=== PATIENT | male | born 1990 | race Two or more races ===

== ENCOUNTER 2023-07-16 10:08 | Emergency (ER) | payer MEDICAID, OTHER ==
[~2023-07-16] VITALS: Ht 182.9 cm; Wt 142.6 kg
[2023-07-16 11:41] VITALS: BP 119/67; PULSE 77; RESP 16; TEMP 97.7; O2SAT 99
[2023-07-16] MEDS: KETOROLAC TROMETH 60MG/2ML VIAL IM ONE (11:55)
[2023-07-16] MEDS ORDERED: IBUP-1456 PO (12:36)
[2023-07-16] MEDS ORDERED: METH-1182 PO (12:36)
== END 2023-07-16 12:44 | disposition home or self-care (01) ==
LOC: ER 10:08
DX: S39.012A Strain of muscle, fascia and tendon of lower back, initial encounter (principal); X50.1XXA Overexertion from prolonged static or awkward postures, initial encounter; Y93.89 Activity, other specified; Y92.89 Other specified places as the place of occurrence of the external cause; Y99.8 Other external cause status
CPT/HCPCS: 72100; 96372; 99283; J1885

== ENCOUNTER 2025-04-07 22:00 | Inpatient (IN) | payer MEDICAID ==
[~2025-04-07] VITALS: Ht 180.3 cm; Wt 136.9 kg
[~2025-04-07 22:00] MED LIST: IBUP-1456 PO; METH-1182 PO
[2025-04-07 23:29] LABS: Hematocrit 41.5 % (41.0-53.0); Hemoglobin 14.1 g/dL (13.5-17.5); Mean Corpuscular Hemoglobin 29.2 pg (28.0-32.0); Mean Corpuscular Volume 86.1 fL (80.0-100.0); Nucleated Red Blood Cells % 0.1 %
[2025-04-07 23:39] LABS: Alanine Aminotransferase 28 U/L (7-40); Albumin 4.3 g/dL (3.2-4.8); Alkaline Phosphatase 103 U/L (46-116); Anion Gap 7 (5-15); BUN/Creatinine Ratio 11.3 (10.0-20.0); Blood Urea Nitrogen 14 mg/dL (9-23); Calcium 9.6 mg/dL (8.7-10.4); Carbon Dioxide 26 mmol/L (20-31); Chloride 107 mmol/L (98-107); Glucose 99 mg/dL (74-106); Potassium 5.0 mmol/L (3.5-5.1); Sodium 140 mmol/L (136-145); Total Protein 7.5 g/dL (5.7-8.2)
[2025-04-07 23:42] LABS: Bilirubin, Total 0.3 mg/dL (0.2-1.0)
--- NOTE | 2025-04-07 23:44 | ED.PDOC ---
Musculoskeletal HPI Comments HPI: 35-year-old male who came to ER for lower extremity pain. He has been experiencing posterior left upper leg pain since April 02. Noted leg pain would radiate to his left upper abdomen. Denies any chest pains or shortness of breath. Ultrasound of the left leg was done last Apr 04. Received a phone call from his primary care provider earlier today telling him that he has a blood clot on his left leg and proceed to the emergency room Past Medical History: Denies Surgical History: Left lower leg surgery Family History: Denies Personal and Social History: Denies HPI: Poor Historian. REVIEW OF SYSTEMS: CONSTITUTIONAL: Denies acute: fever, diaphoresis, chills, generalized weakness. HEAD: Denies acute: headache, photophobia Eyes: Denies acute: Double vision, vision loss, eye pain, eye discharge. EARS: Denies acute: tinnitus, hearing loss, ear discharge, ear pain, THROAT: Denies acute: sore throat, swelling, difficulty swallowing , pain with swallowing, change in voice. NECK: Denies acute: neck pain, neck swelling, stiff neck. HEART: Denies acute : chest pain, palpitations, LUNGS: Denies acute: SOB, wheezing, cough, hemoptysis ABDOMEN: Denies acute: abdominal pain, Nausea, Vomiting, diarrhea, melena , hematemesis, hematochezia SKIN: Denies acute: rash, redness, lesions, itchiness. EXTREMITIES: Denies acute: calf pain, numbness, tingling, weakness, Denies acute: Low back pain. Neuro: Denies acute: focal neurological deficit, motor or sensory focal neurological deficit, tremors, seizure like activity, confusion, dizziness, change in mental status, loss of bowel or bladder function, cauda equina like symptoms. : Denies acute: dysuria, hematuria, flank pain, increase in urinary frequency. PSYCH: Denies acute: hallucination, suicidal ideation, homicidal ideation. PHYSICAL EXAM: General: ----mild----acute distress, awake and alert. Head: normocephalic, atraumatic. No raccoon's eyes, no ayoub sign. Neck: supple, trachea is midline, no swelling. Throat: Normal phonation. Eyes:, no erythema, no purulent discharge, no proptosis, no icterus. Heart: regular rate, regular rhythm, no significant murmur appreciated. Lungs: no apparent respiratory distress, Able to speak in full sentences. No wheezing, no rhonchi, no crackles. No stridors Clear to auscultation bilaterally. Abdomen: non tender to palpation, non distended, soft, no guarding, no rebound, + bowel sounds. Neuro: Awake, Alert, oriented to name, self, situation, follows commands GCS=15. Speech is normal. Skin: no petechia, no purpura, no cyanosis, non-pale, not jaundice. Lower extremities: --no - Pitting edema no deformity, no focal swelling, Evaluation of the area of complaint: Left lower extremity pushing points to proximal posterior thigh where he feels a bulge and tenderness to palpation. In that extremity patient has multiple protrusions and lumps that are chronic in nature but he says overall he has been getting worse in the last few days. He had these lumps and skin fold loculations since of that extremity. Makes eye contact. moves all four extremities. Face: no apparent facial droop. Ambulating in the ED independently. ED COURSE: DISCLAIMER: This medical document was created using an electronic medical record system with voice recognition software and computerized dictation system. Although this document has been carefully reviewed, there might still be some phonetic and typographical errors. Occasional wrong-word or "sound-alike" substitutions may have occurred due to the inherent limitations of voice recognition software. These areas are purely typographical due to imperfections of the software pr ograms and do not reflect any compromise in the patient's medical care. Please read the chart carefully and recognize, using context, where these substitutions have occurred. Chief Complaint: Lower Extremity Time Seen by MD: 23:43 Reviewed Notes: Nurses Notes, Allergies Allergies: Coded Allergies: NO KNOWN ALLERGIES (Unverified , 05/08/16) Home Meds Active Scripts Methocarbamol (Methocarbamol) 750 Mg Tab, 750 MG PO BID, #20 TAB Prov:ALAN HERRING 07/16/23 Ibuprofen (Ibuprofen) 800 Mg Tab, 1 TAB PO TID, #30 TAB Prov:ALAN HERRING 07/16/23 Information Source: Patient Mode of Arrival: Ambulatory Location: Left Past Medical History PAST MEDICAL HISTORY: Denies Surgical History: Denies all surgeries Family History Family History: Unobtainable Social History Smoker: Non-Smoker Alcohol: Denies ETOH Use Drugs: Marijuana Lives In: Home Was a procedure done? Was a procedure done?: No Differential Diagnosis EXT Differential Diagnosis: Cellulitis, CHF, Deep Vein Thrombosis, Compartment Syndrome, Fracture, Sprain, Dislocation, Myocardial Infarction, Contusion, Stra in, Rheumatoid, Septic, Neurovascular injury, Arthritis, Bursitis, Other (Leg swellingDdx include but not limited to DVT, ischemic limb, pitting edema, volume overload, CHF, cellulitis, hematoma, compartment syndrome, dependent edema, venous stasis. Necrotizing fasciitis, abscess, infestation.) X-Ray, Labs, Meds, VS Vital Signs Date Time Temp Pulse Resp B/P (MAP) Pulse Ox O2 Delivery O2 Flow Rate FiO2 04/08/25 01:04 74 18 98 Room Air* 0 21 04/08/25 01:04 98.0 74 18 102/71 (81) 98 98.0 04/07/25 22:19 98.5 104 20 100/80 100 98.5 Lab Test 04/07/25 23:05 Range/Units White Blood Count 10.7 4.4-10.8 10^3/uL Red Blood Count 4.82 4.5-5.90 10^6/uL Hemoglobin 14.1 13.5-17.5 g/dL Hematocrit 41.5 41.0-53.0 % Mean Corpuscular Volume 86.1 80.0-100.0 fL Mean Corpuscular Hemoglobin 29.2 28.0-32.0 pg Mean Corpuscular Hemoglobin Concent 33.9 32.0-36.0 g/dL Red Cell Distribution Width 14.3 11.8-14.3 % Platelet Count 265 140-450 10^3/uL Mean Platelet Volume 8.0 6.9-10.8 fL Neutrophils (%) (Auto) 70.0 37.0-80.0 % Lymphocytes (%) (Auto) 22.5 10.0-50.0 % Monocytes (%) (Auto) 6.0 0.0-12.0 % Eosinophils (%) (Auto) 1.2 0.0-7.0 % Basophils (%) (Auto) 0.3 0.0-2.0 % Neutrophils # (Auto) 7.5 1.6-8.6 10 ^3/uL Lymphocytes # (Auto) 2.4 0.4-5.4 10 ^3/uL Monocytes # (Auto) 0.6 0-1.3 10 ^3/uL Eosinophils # (Auto) 0.1 0-0.8 10 ^3/uL Basophils # (Auto) 0 0-0.2 10 ^3/uL Nucleated Red Blood Cells 0.1 % Prothrombin Time 10.4 9.3-11.8 sec Prothrombin Time INR 0.98 0.9-1.15 Activated Partial Thromboplast Time 26.2 24.5-34.5 SEC D-Dimer, Quantitative 9.75 H 0.0-0.49 mg/L FEU Sodium Level 140 136-145 mmol/L Potassium Level 5.0 3.5-5.1 mmol/L Chloride Level 107 98-107 mmol/L Carbon Dioxide Level 26 20-31 mmol/L Anion Gap 7 5-15 Blood Urea Nitrogen 14 9-23 mg/dL Creatinine 1.24 0.700-1.30 mg/dL Glomerular Filtration Rate Calc 77 >90 mL/min BUN/Creatinine Ratio 11.3 10.0-20.0 Serum Glucose 99 74-106 mg/dL Calcium Level 9.6 8.7-10.4 mg/dL Total Bilirubin 0.3 0.2-1.0 mg/dL Aspartate Amino Transferase (AST) 18 13-40 U/L Alanine Aminotransferase (ALT) 28 7-40 U/L Alkaline Phosphatase 103 46-116 U/L Troponin I High Sensitivity < 3 L </=54 ng/L Total Protein 7.5 5.7-8.2 g/dL Albumin 4.3 3.2-4.8 g/dL [address] [address] Ph: [phone] DIAGNOSTIC IMAGING Diagnostic Imaging Report : [id number] Signed PATIENT: EM WALL ACCT: [id number] UNIT: [id number] : 1990 LOC: ER ROOM / BED: / AGE / SEX: 35 / M ADM STATUS: REG ER SERVICE [id number] ORDERING PHYSICIAN: ALFREDA LIN DO PROCEDURE(s): LLDVT - LT Lower DVT REASON: pain swelling ORDER NUMBER(s): [id number], ACCESSION NUMBER(s): [id number] CLINICAL HISTORY: pain swelling TECHNIQUE: Color and duplex doppler imaging of the left lower extremity veins was performed. Vessel compression if possible was also performed. WID: COMPARISON: None FINDINGS: Left common femoral vein: Normal compressibility and flow. Left femoral vein: Normal compressibility and flow. Left popliteal vein: Normal compressibility and flow. There are varicose veins in the posterior left thigh. IMPRESSION: 1. NO SONOGRAPHIC EVIDENCE FOR DEEP VENOUS THROMBOSIS IN THE LEFT LOWER EXTREMITY VEINS. ATED BY: JIMI CHRISTINE MD DICTATED DATE/TIME: 04/07/252355 SIGNED BY: JIMI CHRISTINE MD SIGNED DATE/TIME: 04/07/252355 CC: [place] [id number] Ph: [phone] DIAGNOSTIC IMAGING Diagnostic Imaging Report : [id number] Signed PATIENT: EM WALL ACCT: [id number] UNIT: [id number] : 1990 LOC: ER ROOM / BED: / AGE / SEX: 35 / M ADM STATUS: REG ER SERVICE [id number] ORDERING PHYSICIAN: ALFREDA LIN DO PROCEDURE(s): CAPIV - CT CHEST/AB/PL W CON- IV ONLY REASON: DVT ORDER NUMBER(s): [id number], ACCESSION NUMBER(s): [id number] Exam: CT CT CHEST/AB/PL W CON- IV ONLY History: DVT Comparison Study: None Technique: Multidetector spiral CT of the chest, abdomen and pelvis was performed from lower neck to pubic symphysis. Intravenous contrast was administered during this examination. Portal venous imaging was obtained. Axial, coronal and sagittal multiplanar reformats were performed by the technologist on a separate workstation. Radiation Dose : 1. Chest/Abdomen/Pelvis: CTDIvol 32.53 mGy, DLP 3840.24 mGy*cm. Findings: Lower neck: Normal thyroid. Lungs: No focal consolidation, pleural effusion or pneumothorax. Heart/Vascular Structures: Normal heart size. No pericardial effusion. Lymph Nodes: No adenopathy Pleura: No pleural effusion or significant pneumothorax. Liver: The liver is normal in size. No focal lesions. Normal hepatic vascular enhancement. Gallbladder and Biliary Tree: Unremarkable Spleen: Unremarkable Pancreas: The pancreas is normal in appearance without focal lesions or abnormal enhancement. Adrenal Glands: Unremarkable Kidneys: Kidneys demonstrate normal symmetric enhancement without focal lesions, calculi or hydronephrosis. Right renal cortical cysts measure up to 9 mm in diameter. Bladder: Unremarkable Bowel: The stomach is grossly normal in appearance. Small bowel and colon are normal in caliber and distribution. The appendix is normal. Ascites: Absent Lymphadenopathy: No mesenteric, retroperitoneal or periportal lymphadenopathy. Abdominal Wall and Mesentery: Fat containing umbilical hernia. Vasculature: The visualized abdominal aorta is normal in size and caliber. Abdominal and pelvic vessels demonstrate normal enhancement. Pelvic Organs: Unremarkable Musculoskeletal: No aggressive focal bony lesions, acute fractures or dislocatio n. IMPRESSION: 1. No acute findings involving the chest, abdomen or pelvis. ATED BY: STEPHANE DUMAS MD DICTATED DATE/TIME: 04/08/25347 SIGNED BY: STEPHANE DUMAS MD SIGNED DATE/TIME: 04/08/25347 CC: Time of 1ST Reevaluation: 23:36 Reevaluation 1ST: Unchanged Time of 2ND Reevaluation: 02:33 (All CT scan imaging are still pending.) Patient Education/Counseling: Diagnosis, Treatment Family Education/Counseling: Other Comments Although patient's workup is stable and unrevealing, clinically I suspect this patient is still have some clotting disorder with elevated D-dimer greater than nine and him reporting his PCP diagnosed him with a DVT based on an ultrasound obtained few days ago. Our ultrasound report here did not show a DVT. MDM: patient presented with the above HPI.---DVT---workup was initiated. patient was found with the above mentioned diagnosis. the following medications were ordered: please refer to order lists of meds and tests obtained by myself Dr. Lin. Patient ED course and VS have been stabilized. Patient has been reassessed in the ED and remained in a stable condition. Pertinent incidental findings were discussed with the patient and/or family. Patient/family voices understanding and is agreeable with plan. Patient has been observed in the ED adequate length of time to insure improvement/stability. Escalation of care considered: Consideration of escalation to observation or admission Patient states that his symptoms are progressively getting worse that he starts to feel pain on the left side of his abdomen into his left ribcage. CT imaging studies were obtained to rule out any PE. Patient was ADMITTED to the medicine team for further evaluation and treatment of their presentation. All the reports of any imaging studies that were ordered by myself were reviewed by myself. Departure 1 Departure Time of Disposition: 03:47 Impression: Primary Impression: Leg pain Additional Impression: Elevated d-dimer Disposition: ADMITTED INPATIENT Admit to: Tele Condition: Guarded Discharged With: Self Critical Care Note Critical Care Time?: Yes (45 min-critical care time only) I personally scribed for ALFREDA LIN DO ([email or web address]) on 04/07/25 at 23:44. Electronically submitted by Addi Almonte ([email or web address]). I personally scribed for ALFREDA LIN DO ([email or web address]) on 04/08/25 at 00:02. Electronically submitted by Addi Almonte ([email or web address]). I personally scribed for ALFREDA LIN DO ([email or web address]) on 04/08/25 at 03:52. Electro nically submitted by Addi Almonte ([email or web address]). ALFREDA LIN DO Apr 07, 2025 23:44
[2025-04-07 23:48] LABS: INR 0.98 (0.9-1.15); Partial Thromboplastin Time 26.2 SEC (24.5-34.5); Prothrombin Time 10.4 sec (9.3-11.8)
--- NOTE | 2025-04-07 23:58 | DVH ---
CLINICAL HISTORY: pain swelling TECHNIQUE: Color and duplex doppler imaging of the left lower extremity veins was performed. Vessel compression if possible was also performed. WID: COMPARISON: None FINDINGS: Left common femoral vein: Normal compressibility and flow. Left femoral vein: Normal compressibility and flow. Left popliteal vein: Normal compressibility and flow. There are varicose veins in the posterior left thigh. IMPRESSION: 1. NO SONOGRAPHIC EVIDENCE FOR DEEP VENOUS THROMBOSIS IN THE LEFT LOWER EXTREMITY VEINS.
[2025-04-08 01:04] VITALS: BP 102/71; PULSE 74; RESP 18; TEMP 98; O2SAT 98
[2025-04-08] MEDS: IOHEXOL 350 MG/ML 100ML IJ ONE (01:11)
--- NOTE | 2025-04-08 03:50 | DVH ---
Exam: CT CT CHEST/AB/PL W CON- IV ONLY History: DVT Comparison Study: None Technique: Multidetector spiral CT of the chest, abdomen and pelvis was performed from lower neck to pubic symphysis. Intravenous contrast was administered during this examination. Portal venous imaging was obtained. Axial, coronal and sagittal multiplanar reformats were performed by the technologist on a separate workstation. Radiation Dose : 1. Chest/Abdomen/Pelvis: CTDIvol 32.53 mGy, DLP 3840.24 mGy*cm. Findings: Lower neck: Normal thyroid. Lungs: No focal consolidation, pleural effusion or pneumothorax. Heart/Vascular Structures: Normal heart size. No pericardial effusion. Lymph Nodes: No adenopathy Pleura: No pleural effusion or significant pneumothorax. Liver: The liver is normal in size. No focal lesions. Normal hepatic vascular enhancement. Gallbladder and Biliary Tree: Unremarkable Spleen: Unremarkable Pancreas: The pancreas is normal in appearance without focal lesions or abnormal enhancement. Adrenal Glands: Unremarkable Kidneys: Kidneys demonstrate normal symmetric enhancement without focal lesions, calculi or hydronephrosis. Right renal cortical cysts measure up to 9 mm in diameter. Bladder: Unremarkable Bowel: The stomach is grossly normal in appearance. Small bowel and colon are normal in caliber and distribution. The appendix is normal. Ascites: Absent Lymphadenopathy: No mesenteric, retroperitoneal or periportal lymphadenopathy. Abdominal Wall and Mesentery: Fat containing umbilical hernia. Vasculature: The visualized abdominal aorta is normal in size and caliber. Abdominal and pelvic vessels demonstrate normal enhancement. Pelvic Organs: Unremarkable Musculoskeletal: No aggressive focal bony lesions, acute fractures or dislocation. IMPRESSION: 1. No acute findings involving the chest, abdomen or pelvis.
[2025-04-08] MEDS ORDERED: HYDROcodone-ACET 5/325MG TAB PO PRN (04:15)
[2025-04-08] MEDS ORDERED: ACETAMINOPHEN 325 MG TAB PO PRN (04:15)
[2025-04-08] MEDS ORDERED: HYDROmorphone HCL 2 MG/ML VL/or syr IV ONE (04:15)
[2025-04-08] MEDS ORDERED: HYDROmorphone HCL 2 MG/ML VL/or syr IV PRN (04:15)
[2025-04-08] MEDS ORDERED: ONDANSETRON HCL 4 MG/2 ML VIAL IV PRN (04:15)
--- NOTE | 2025-04-08 04:41 | DVHHPRES ---
History of Present Illness Resident Creating Document: KATY RAZA RESIDENT History of Present Illness 35-year-old male with a past medical history of varicose veins has come to the emergency department for pain in the left upper thigh. Patient reports that on 04/02/25 he had the sudden acute sharp pain in the left mid thigh which began to radiate upwards to his left groin, 10/10 in intensity, no relieving or aggravating factors with no associated symptoms. He went 2 days later (on the ) to [facility] and an ultrasound was done there. today they informed his primary care physician that he had a clot in his leg and to visit the emergency department. patient denies any shortness of breath, cough, recent hospitalization, being bedridden in the last few weeks, redness or swelling of any of the extremities. Patient's vitals on admission- Na 0.0, HR 104, RR 20, BP 102/71 mmHg, SpO2 98% room air. D-dimer is elevated at 9.75 and Doppler of the left extremity shows no DVT But presence of varicose veins in the left posterior thigh. We are admitting the patient for further workup and management PMH: varicose veins PSH: none Family history: Reviewed, noncontributory to the management of this case Social history: Patient denies drinking alcohol or smoking cigarettes but admits to smoking marijuana every day ( on inquiry mentions he does not keep count) Allergies: None Code status: Full code Patient left AMA Patient wanted to leave AMA. Patient counseled regarding the risks of leaving AMA the need of further workup and management for his high D-dimer level. Informed regarding pending Doppler. Patient communicated understanding and still chose to leave AMA. Patient his been counseled to return to ER or visit his primary care physician if he is symptomatic or in any difficulty. Patient verbalized understanding,signed papers and left Review of Systems Constitutional: No: Fever, Chills, Sweats, Weakness, Malaise, Other Eyes: No: Pain, Vision change, Conjunctivae inflammation, Eyelid inflammation, Other, Redness ENT: No: Ear pain, Ear discharge, Nose pain, Nose discharge, Nose congestion, Mouth pain, Mouth swelling, Throat pain, Throat swelling, Other Respiratory: No: Cough, Dry, Shortness of breath, SOB with excertion, Wheezing, Hemoptysis, Pleuritic Pain, Sputum, Wheezing, Other Cardiovascular: No: Chest Pain, Palpitations, Orthopnea, Paroxysmal Noc. Dyspnea, Edema, Lt Headedness, Other Gastrointestinal: No: Nausea, Vomiting, Abdominal Pain, Diarrhea, Constipation, Melena, Hematochezia, Other Genitourinary: No Dysuria, No Frequency, No Incontinence, No Hematuria, No Retention, No Other Musculoskeletal: other, leg pain; No: neck pain, shoulder pain, arm pain, back pain, hand pain, foot pain Skin: No: Rash, Lesions, Jaundice, Bruising, Other Neurological: No: Weakness, Numbness, Incoordination, Change in speech, Confusion, Seizures, Other Allergies: Coded Allergies: NO KNOWN ALLERGIES (Unverified , 05/08/16) Medications Current Medications Medications Dose Ordered Sig/Robert Route Start Time Stop Time Status Last Admin Dose Admin Acetaminophen/ Hydrocodone Bitart 1 tab Q4HP PRN PO 04/08/25 04:15 Ondansetron HCl 4 mg Q4HP PRN IV 04/08/25 04:15 Acetaminophen 650 mg Q6HP PRN PO 04/08/25 04:15 Hydromorphone HCl 0.25 mg Q4HPRN PRN IV 04/08/25 04:15 Exam Vital Signs Vital Signs Date Time Temp Pulse Resp B/P (MAP) Pulse Ox O2 Delivery O2 Flow Rate FiO2 04/08/25 01:04 74 18 98 Room Air* 0 21 04/08/25 01:04 98.0 102/71 (81) 98.0 Exam General Appearance: Alert, Oriented X3, Cooperative, Not in acute distress HEENT: Atraumatic, Mucous membranes moist/pink Respiratory: Clear to auscultation, Normal air movement, No added sounds Cardiovascular: Regular rate, Normal S1, Normal S2, No murmurs Abdominal: Active bowel sounds, Soft, no distention, no tenderness Extremities: No edema, Normal pulses, tenderness on mild palpation of left t high and groin, presence of multiple varicose veins /lumps felt in the left thigh which are tender to touch Skin: No Significant rash, except past surgical scars Neuro: Normal speech, sensorimotor deficits none Psych/Mental Status: Mental status NL, Mood NL Labs/Xrays Labs Test 04/07/25 23:05 Range/Units White Blood Count 10.7 4.4-10.8 10^3/uL Red Blood Count 4.82 4.5-5.90 10^6/uL Hemoglobin 14.1 13.5-17.5 g/dL Hematocrit 41.5 41.0-53.0 % Mean Corpuscular Volume 86.1 80.0-100.0 fL Mean Corpuscular Hemoglobin 29.2 28.0-32.0 pg Mean Corpuscular Hemoglobin Concent 33.9 32.0-36.0 g/dL Red Cell Distribution Width 14.3 11.8-14.3 % Platelet Count 265 140-450 10^3/uL Mean Platelet Volume 8.0 6.9-10.8 fL Neutrophils (%) (Auto) 70.0 37.0-80.0 % Lymphocytes (%) (Auto) 22.5 10.0-50.0 % Monocytes (%) (Auto) 6.0 0.0-12.0 % Eosinophils (%) (Auto) 1.2 0.0-7.0 % Basophils (%) (Auto) 0.3 0.0-2.0 % Neutrophils # (Auto) 7.5 1.6-8.6 10 ^3/uL Lymphocytes # (Auto) 2.4 0.4-5.4 10 ^3/uL Monocytes # (Auto) 0.6 0-1.3 10 ^3/uL Eosinophils # (Auto) 0.1 0-0.8 10 ^3/uL Basophils # (Auto) 0 0-0.2 10 ^3/uL Nucleated Red Blood Cells 0.1 % Prothrombin Time 10.4 9.3-11.8 sec Prothrombin Time INR 0.98 0.9-1.15 Activated Partial Thromboplast Time 26.2 24.5-34.5 SEC D-Dimer, Quantitative 9.75 H 0.0-0.49 mg/L FEU Sodium Level 140 136-145 mmol/L Potassium Level 5.0 3.5-5.1 mmol/L Chloride Level 107 98-107 mmol/L Carbon Dioxide Level 26 20-31 mmol/L Anion Gap 7 5-15 Blood Urea Nitrogen 14 9-23 mg/dL Creatinine 1.24 0.700-1.30 mg/dL Glomerular Filtration Rate Calc 77 >90 mL/min BUN/Creatinine Ratio 11.3 10.0-20.0 Serum Glucose 99 74-106 mg/dL Calcium Level 9.6 8.7-10.4 mg/dL Total Bilirubin 0.3 0.2-1.0 mg/dL Aspartate Amino Transferase (AST) 18 13-40 U/L Alanine Aminotransferase (ALT) 28 7-40 U/L Alkaline Phosphatase 103 46-116 U/L Troponin I High Sensitivity < 3 L </=54 ng/L Total Protein 7.5 5.7-8.2 g/dL Albumin 4.3 3.2-4.8 g/dL SEPSIS Sepsis Screen Date sepsis recognized/suspect: Apr 08, 2025 Time Sepsis recognized/suspect: 103 Recent Procedure: No On Antibiotic Therapy: No Respiratory Rate >20: No Heart Rate >90: No Temp<36 C (96.8 F) or >38.3 C: No SBP <90 or MAP <65 mmHG: No New Acute Mental Status Change: No Is the patient on CPAP, BIPAP,: No Physician Orders Electrical Designer Drafter (04/07/25 ) Urinalysis (04/07/25 22:59) Lt Lower Dvt (04/07/25 23:24) Ct Chest/Ab/Pl W Con- Iv Only (04/07/25 23:43) Admit (04/08/25 04:06) Code Status (04/08/25 04:06) Hydrocodone-Acet 5/325mg Tab ([place] 5/32 (04/08/25 04:15) Ondansetron Hcl (Zofran) (04/08/25 04:15) Complete Blood Count (04/09/25 04:00) Comprehensive Metabolic Panel (04/09/25 04:00) Condition: Unstable (04/08/25 04:06) Acetaminophen Tablet (Tylenol Tablet) (04/08/25 04:15) Chest Xray 1 View (04/08/25 04:06) Erythrocyte Sedimentation Rate (04/08/25 04:06) C-Reactive Protein (04/08/25 04:06) Regular Diet (04/08/25 Breakfast) Magnesium (04/08/25 04:06) Hydromorphone Injection (Dilaudid Inject (04/08/25 04:15) Echo 2d Mode Cardiac Dop (04/08/25 04:06) B-Type Natriuretic Peptide (04/08/25 04:06) Rt Lower Dvt (04/08/25 04:06) Vital Signs Date Time Temp Pulse Resp B/P (MAP) Pulse Ox O2 Delivery O2 Flow Rate FiO2 04/08/25 01:04 74 18 98 Room Air* 0 21 04/08/25 01:04 98.0 74 18 102/71 (81) 98 98.0 04/07/25 22:19 98.5 104 20 100/80 100 98.5 Laboratory Tests Test 04/07/25 23:05 White Blood Count 10.7 10^3/uL (4.4-10.8) Assessment/Plan Assessment/Plan #Questionable left leg DVT #Chronic venous insufficiency, varicose veins -D-dimer elevated at 9.75 -left lower extremity Doppler shows no DVT -right lower extremity Doppler -CT abdomen and pelvis:No acute findings involving the chest, abdomen or pelvis -ESR,CRP #Obesity, BMI 42.1 kg/m2 -patient counseled regarding need of weight loss, healthier lifestyle and dietary modification for over 8 minutes #Substance abuse, cannabinoids -patient was counseled regarding the need of cessation of cannabinoids and the harm it has on his health for over 8 minutes DVT prophylaxis: held for now Diet: regular diet Goals of care discussed with the patient for more than 27 minutes: Full code status Case discussed with Dr. Parish, patient Plan discussed with: Patient My Orders Orders - KATY RAZA RESIDENT Procedure Category Date Status Time Admit ADMIT 04/08/25 Transmitted 04:06 Code Status CODE 04/08/25 Transmitted 04:06 Hydrocodone-Acet PHA 04/08/25 In Process 5/325mg Tab ([place] 04:15 Ondansetron Hcl PHA 04/08/25 In Process (Zofran) 04:15 Complete Blood Count LAB 04/09/25 Verified 04:00 Comprehensive LAB 04/09/25 Verified Metabolic Panel 04:00 Condition: Unstable ESTEPHANIA 04/08/25 In Process 04:06 Acetaminophen Tablet PHA 04/08/25 In Process (Tylenol Tablet) 04:15 Chest Xray 1 View XY 04/08/25 Logged 04:06 Erythrocyte LAB 04/08/25 In Process Sedimentation Rate 04:06 C-Reactive Protein LAB 04/08/25 In Process 04:06 Regular Diet DIET 04/08/25 Transmitted Breakfast Magnesium LAB 04/08/25 In Process 04:06 Hydromorphone PHA 04/08/25 In Process Injection (Dilaudid 04:15 Echo 2d Mode Cardiac US 04/08/25 Logged DOP 04:06 B-Type Natriuretic LAB 04/08/25 In Process Peptide 04:06 Rt Lower Dvt US 04/08/25 Logged 04:06 Date of Service: Apr 08, 2025 Billing Provider: GUILLERMO PARISH MD Common Visit Codes: 67012-[id number] INP/OBS CARE (HIGH) Secondary Visit Codes: [id number] CARE PLAN 30 MINUTES KATY RAZA RESIDENT Apr 08, 2025 04:41
[2025-04-09 01:31] LABS: Magnesium 1.9 mg/dL (1.6-2.6)
== END 2025-04-08 05:55 | disposition left against medical advice (07) | DRG 197 ==
LOC: ER 22:00 → OVERFLOW 04-08 04:06
PROVIDERS: ATTEND Emergency Medicine
DX: I83.92 Asymptomatic varicose veins of left lower extremity (principal); I82.4Z2 Acute embolism and thrombosis of unspecified deep veins of left distal lower extremity; E66.9 Obesity, unspecified; F12.10 Cannabis abuse, uncomplicated; Z68.41 Body mass index [BMI] 40.0-44.9, adult; R79.89 Other specified abnormal findings of blood chemistry; Z53.29 Procedure and treatment not carried out because of patient's decision for other reasons; I87.2 Venous insufficiency (chronic) (peripheral)
CPT/HCPCS: 36415; 74177; 80053; 83735; 83880; 84484; 85025; 85379; 85610; 85652; 85730; 86141; 93971; 99291; G0378